=== PATIENT | male | born 1955 | race Two or more races ===

== ENCOUNTER 2021-06-12 09:12 | Emergency (ER) | payer OTHER ==
[~2021-06-12] VITALS: Ht 180.3 cm; Wt 111.1 kg
[2021-06-12] MEDS ORDERED: ELIQUIS5 MG PO (09:26)
[2021-06-12] MEDS ORDERED: TOPROL XL100 M1 PO (09:27)
[2021-06-12] MEDS ORDERED: LANOXIN125 MCG PO (09:28)
[2021-06-12] MEDS ORDERED: COZAAR25 MG PO (09:28)
[2021-06-12] MEDS ORDERED: ZYLOPRIM100 M1 PO (09:28)
[2021-06-12] MEDS ORDERED: INVOKAMET 150-1 EAC1 PO (09:28)
[2021-06-12] MEDS ORDERED: LASIX20 MG PO (09:29)
== END 2021-06-12 10:24 | disposition home or self-care (01) ==
LOC: ER 09:12
DX: U07.1 COVID-19 (principal); R05.9 Cough, unspecified

== ENCOUNTER 2021-08-29 20:48 | Emergency (ER) | payer OTHER ==
[~2021-08-29] VITALS: Ht 180.3 cm; Wt 109.8 kg
[~2021-08-29 20:48] MED LIST: COZAAR25 MG PO; ELIQUIS5 MG PO; INVOKAMET 150-1 EAC1 PO; LANOXIN125 MCG PO; LASIX20 MG PO; TOPROL XL100 M1 PO; ZYLOPRIM100 M1 PO
== END 2021-08-29 22:58 | disposition left against medical advice (07) ==
LOC: ER 20:48
DX: B34.8 Other viral infections of unspecified site (principal); Z20.822 Contact with and (suspected) exposure to COVID-19

== ENCOUNTER 2024-06-29 19:02 | Inpatient (IN) | payer OTHER ==
[~2024-06-29] VITALS: Ht 162.6 cm; Wt 105.2 kg
[2024-06-29] MEDS ORDERED: XARELTO20 MG PO (19:13)
[2024-06-29] MEDS ORDERED: JARDIANCE10 MG PO (19:14)
[2024-06-29] MEDS ORDERED: DILTIAZEM HCL 125MG/25ML VIAL IV SCH (19:30)
[2024-06-29] MEDS ORDERED: DILTIAZEM HCL 25 MG/5 ML VIAL IV ONE (19:54)
[2024-06-29] MEDS ORDERED: ENOXAPARIN SODIUM 80 MG/0.8 ML SYRINGE SUBCUTANEO ONE (19:54)
[2024-06-29 20:26] LABS: HEMATOCRIT 42.4 % (39.0-48.0); HEMOGLOBIN 14.1 g/dL (13-16.00); MEAN CELL VOLUME 93.5 fL (80.0-100.00); MEAN CORPUSCULAR HEMOGLOBIN 31.2 pg (27.00-32.0); MEAN CORPUSCULAR HGB CONC 33.3 g/dl (32.0-36.0); PLATELET COUNT 304 K/uL (150-450); RED BLOOD COUNT 4.54 M/uL (4.00-6.00); RED CELL DISTRIBUTION WIDTH 16.9 % (11.5-14.5)
[2024-06-29 20:54] LABS: INR 1.2; PARTIAL THROMBOPLASTIN TIME 28.2 SECONDS (22.0-34.0); PROTHROMBIN TIME 12.9 SECONDS (9.0-11.5)
[2024-06-29] MEDS ORDERED: ENOXAPARIN SODIUM 80 MG/0.8 ML SYRINGE SUBCUTANEO SCH (21:00)
[2024-06-29] MEDS ORDERED: DILTIAZEM HCL 125 MG in 0.9 % SODIUM CHLORIDE 100 ML IV SCH (21:30)
[2024-06-29] MEDS ORDERED: IPRATROPIUM BROMIDE 0.5 MG/2.5 ML AMPUL.NEB IH SCH (22:05)
[2024-06-29] MEDS ORDERED: BENZONATATE 100 MG CAPSULE PO SCH (22:10)
[2024-06-29] MEDS ORDERED: METHYLPREDNISOLONE SOD SUCC 125 MG VIAL IV ONE (22:15)
[2024-06-29] MEDS ORDERED: ACETAMINOPHEN 500 MG GEL..CAP PO PRN (22:15)
[2024-06-29] MEDS ORDERED: ONDANSETRON HCL 4 MG in 0.9 % SODIUM CHLORIDE 50 ML IV PRN (22:15)
[2024-06-29 22:28] LABS: CALCIUM 9.4 mg/dL (8.5-10.1); CREATININE SERUM 1.3 mg/dL (0.70-1.30); DIGOXIN 0.1 ng/ml (0.8-2.0); GFR 54.42; POTASSIUM 4.04 mEq/L (3.5-5.1)
[2024-06-29] MEDS ORDERED: INSULIN LISPRO 1,000 UNIT/10 ML UNITS SUBCUTANEO PRN (22:30)
[2024-06-29] MEDS ORDERED: DEXTROSE 50 % IN WATER 0.5 G/ML DISP.SYRIN IV PRN (22:30)
[2024-06-29] MEDS ORDERED: METHYLPREDNISOLONE SOD SUCC 40 MG VIAL ONE (22:31)
[2024-06-29] MEDS ORDERED: CEFTRIAXONE SODIUM 2,000 MG in 0.9 % SODIUM CHLORIDE 100 ML IV SCH (22:33)
[2024-06-29] MEDS ORDERED: AZITHROMYCIN 500 MG in DEXTROSE 5 % IN WATER 250 ML IV SCH (22:33)
[2024-06-29] MEDS ORDERED: IPRATROPIUM BROMIDE 0.5 MG/2.5 ML AMPUL.NEB IH ONE (23:59)
[2024-06-30] VITALS (9 sets, daily range): BP systolic 121–153; BP diastolic 77–90; O2SAT 95–99
[2024-06-30 00:14] LABS: ABG PO2 108.2 mmHg (80-100); ABG pCO2 34.6 mmHg (35-45); BASE EXCESS -2.4 mmol/l; BICARBONATE 21.4 mmol/l (23-25); Tco2 22.5 mmol/l; allen test SATISFACTORY; o2 21 %; puncture site RADIAL RIGHT
[2024-06-30 00:16] LABS: SaO2 98.2 %
[2024-06-30] MEDS ORDERED: AZITHROMYCIN 500 MG VIAL IV ONE ×2 (00:19→18:32)
[2024-06-30] MEDS ORDERED: CEFTRIAXONE SODIUM 2,000 MG VIAL ONE (00:19)
[2024-06-30 01:02] LABS: PH,URINE 5.5 (5.0-8.0); URINE APPEARANCE Clear; URINE BILIRRUBIN Negative (NEGATIVE); URINE BLOOD Negative; URINE COLOR Dark Yellow; URINE KETONE Trace (NEGATIVE); URINE LEUKOCYTE Negative; URINE NITRATE Negative; URINE PROTEIN 30 (NEGATIVE); URINE UROBILINOGEN 0.2 E.U./dl
[2024-06-30 01:05] LABS: URINE BACTERIA 413.5 uL (0.0-1933); URINE EPITHELIAL CELLS 1.5 uL (0.0-38.8); URINE WBC 5.3 uL (0.0-23.2)
[2024-06-30 01:06] LABS: URINE CAST 0.29 uL (0.0-1.40); URINE GLUCOSE 100 MG/DL (NEGATIVE); URINE RBC 1.6 uL (0.0-20.8)
[2024-06-30] MEDS ORDERED: INSULIN LISPRO 1,000 UNIT/10 ML UNITS SUBCUTANEO PRN (06:30)
[2024-06-30 07:46] LABS: CHOL HDL RATIO 2.9 (0-5.0)
[2024-06-30 07:51] LABS: TSH 0.111 uIU/mL (0.358-3.74)
[2024-06-30] MEDS ORDERED: METOPROLOL SUCCINATE 100 MG TAB.SR.24H PO SCH (09:00)
[2024-06-30] MEDS ORDERED: RIVAROXABAN 20 MG TABLET PO SCH (09:00)
[2024-06-30] MEDS ORDERED: FAMOTIDINE/PF 20 MG in 0.9 % SODIUM CHLORIDE 8 ML IV PUSH SCH ×2 (09:00→21:00)
[2024-06-30] MEDS ORDERED: AZITHROMYCIN 500 MG VIAL IV NR (15:00)
[2024-07-01] VITALS (8 sets, daily range): BP systolic 102–126; BP diastolic 69–82; O2SAT 90–97
[2024-07-01 06:49] LABS: HEMATOCRIT 40.2 % (39.0-48.0); HEMOGLOBIN 13.5 g/dL (13-16.00); MEAN CELL VOLUME 94.3 fL (80.0-100.00); MEAN CORPUSCULAR HEMOGLOBIN 31.5 pg (27.00-32.0); MEAN CORPUSCULAR HGB CONC 33.4 g/dl (32.0-36.0); PLATELET COUNT 278 K/uL (150-450); RED BLOOD COUNT 4.27 M/uL (4.00-6.00); RED CELL DISTRIBUTION WIDTH 17.1 % (11.5-14.5)
[2024-07-01 07:13] LABS: BILIRUBIN TOTAL 0.34 mg/dL (0.3-1.2); CALCIUM 9.2 mg/dL (8.5-10.1); CREATININE SERUM 1.72 mg/dL (0.70-1.30); GFR 39.39; GLOBULINA 3.7 G/DL (2.4-3.5); PHOSPHOROUS 4.3 mg/dL (2.5-4.9); TOTAL PROTEIN 6.7 gm/dL (6.4-8.2)
[2024-07-01 07:24] LABS: C-REACTIVE PROTEIN 1.97 MG/DL (0.00-0.29); MAGNESIUM 2.3 mg/dL (1.8-2.4); POTASSIUM 4.8 mEq/L (3.5-5.1)
[2024-07-01] MEDS ORDERED: BENZONATATE 200 MG CAPSULE PO SCH (09:00)
[2024-07-01] MEDS ORDERED: METOPROLOL SUCCINATE 50 MG TAB.SR.24H PO STA (10:01)
[2024-07-01] MEDS ORDERED: AZITHROMYCIN 500 MG VIAL IV ONE (11:57)
[2024-07-01] MEDS ORDERED: AZITHROMYCIN 500 MG VIAL IV SCH (12:00)
[2024-07-01] MEDS ORDERED: LORATADINE 10 MG TABLET PO NR (14:00)
[2024-07-01] MEDS ORDERED: 0.9 % SODIUM CHLORIDE 1,000 ML IV SCH (18:45)
[2024-07-01] MEDS ORDERED: DILTIAZEM HCL 30 MG TABLET PO SCH (21:32)
[2024-07-02 00:57] VITALS: O2SAT 94
[2024-07-02 01:50] VITALS: BP 137/89; O2SAT 94
[2024-07-02 05:48] VITALS: O2SAT 99
[2024-07-02 08:32] VITALS: BP 142/86
[2024-07-02] MEDS ORDERED: METOPROLOL SUCCINATE PO SCH (09:00)
[2024-07-02] MEDS ORDERED: LORATADINE 10 MG TABLET PO SCH (09:00)
[2024-07-02] MEDS ORDERED: METOPROLOL SUCCINATE 100 MG TAB.SR.24H PO SCH (09:00)
== END 2024-07-02 10:01 | disposition home or self-care (01) | DRG 309 ==
LOC: ER 19:04 → MEDJ 22:16
PROVIDERS: Emergency Medicine; General Practice; Internal Medicine Infectious Disease; ADMIT Internal Medicine; ATTEND Internal Medicine
PROC: BB24ZZZ Computerized Tomography (CT Scan) of Bilateral Lungs (ICD-10-PCS; principal; 2024-06-29)
PROC: B246ZZZ Ultrasonography of Right and Left Heart (ICD-10-PCS; 2024-06-29)
PROC: 3E0F7GC Introduction of Other Therapeutic Substance into Respiratory Tract, Via Natural or Artificial Opening (ICD-10-PCS; 2024-06-30)
PROC: 4A12X4Z Monitoring of Cardiac Electrical Activity, External Approach (ICD-10-PCS; 2024-06-30)
DX: I48.20 Chronic atrial fibrillation, unspecified (principal); N17.8 Other acute kidney failure; R65.10 Systemic inflammatory response syndrome (SIRS) of non-infectious origin without acute organ dysfunction; J20.9 Acute bronchitis, unspecified; I10 Essential (primary) hypertension; E11.9 Type 2 diabetes mellitus without complications; Z79.4 Long term (current) use of insulin; J06.9 Acute upper respiratory infection, unspecified